=== PATIENT | female | born 1950 | race Caucasian/White ===

== ENCOUNTER → 2023-10-21 14:16 | Outpatient (BNVA) | payer MEDICARE, SELFPAY | PROVIDERS: PCP Nurse Practitioner; Visit Provider Podiatrist Foot & Ankle Surgery | DX: M79.671 Pain in right foot (principal); E11.42 Type 2 diabetes mellitus with diabetic polyneuropathy; L60.3 Nail dystrophy; Q82.8 Other specified congenital malformations of skin; G62.9 Polyneuropathy, unspecified; Z79.4 Long term (current) use of insulin | CPT/HCPCS: 11055; 11721; 73630; 99203 ==

== ENCOUNTER → 2023-12-23 08:57 | Outpatient (BNVA) | payer MEDICARE, SELFPAY | PROVIDERS: PCP Nurse Practitioner; Visit Provider Podiatrist Foot & Ankle Surgery | DX: E11.8 Type 2 diabetes mellitus with unspecified complications (principal); L60.3 Nail dystrophy; G62.9 Polyneuropathy, unspecified; E11.42 Type 2 diabetes mellitus with diabetic polyneuropathy; Q82.8 Other specified congenital malformations of skin; M79.671 Pain in right foot; Z79.4 Long term (current) use of insulin | CPT/HCPCS: 11055; 11721; 73630; 99213 ==

== ENCOUNTER → 2024-02-22 10:58 | Outpatient (BNVA) | payer MEDICARE, MEDICAID, SELFPAY | PROVIDERS: PCP Nurse Practitioner; Visit Provider Podiatrist Foot & Ankle Surgery | DX: M79.672 Pain in left foot (principal); E11.42 Type 2 diabetes mellitus with diabetic polyneuropathy; L60.3 Nail dystrophy; Q82.8 Other specified congenital malformations of skin; G62.9 Polyneuropathy, unspecified; Z79.4 Long term (current) use of insulin | CPT/HCPCS: 11056; 11721; 73630; 99213 ==

== ENCOUNTER 2024-03-21 10:35 | Outpatient (CLI) | payer MEDICARE, MEDICAID, SELFPAY ==
--- NOTE | 2024-03-21 10:40 | MM_ITS ---
WS: [id number] BILATERAL 3D TOMOSYNTHESIS DIGITAL SCREENING MAMMOGRAPHY WITH CAD CLINICAL INFORMATION: SCREENING HISTORY: Screening mammogram. No current complaints. COMPARISON: 2021 TECHNIQUE: Bilateral CC and MLO views. FINDINGS: Scattered fibroglandular densities bilaterally. No suspicious focal mass, asymmetry, calcifications, or architectural distortion. No evidence of malignancy. Incidental punctate calcifications. Biopsy clip LEFT breast. Vascular calcification. MM/MM scr tomosynthesis 80115 IMPRESSION: DENSITY: There are scattered areas of fibroglandular density. BI-RADS: 2 - Benign. FOLLOW UP: 1 Year Follow-up Recommend return to annual screening mammography.
== END 2024-03-21 10:36 | disposition home or self-care (01) ==
PROVIDERS: PCP Student in an Organized Health Care Education/Training Program; Visit Provider Student in an Organized Health Care Education/Training Program
DX: Z12.31 Encounter for screening mammogram for malignant neoplasm of breast (principal); R92.323 Mammographic fibroglandular density, bilateral breasts; R92.1 Mammographic calcification found on diagnostic imaging of breast
CPT/HCPCS: 77063; 77067

== ENCOUNTER → 2024-04-03 09:11 | Outpatient (BNVA) | payer MEDICARE, MEDICAID, SELFPAY | PROVIDERS: PCP Nurse Practitioner; Visit Provider Internal Medicine | DX: E11.9 Type 2 diabetes mellitus without complications (principal); E78.2 Mixed hyperlipidemia | CPT/HCPCS: 99204 ==

== ENCOUNTER → 2024-04-25 11:03 | Outpatient (BNVA) | payer MEDICARE, MEDICAID, SELFPAY | PROVIDERS: PCP Nurse Practitioner; Visit Provider Podiatrist Foot & Ankle Surgery | DX: E11.42 Type 2 diabetes mellitus with diabetic polyneuropathy (principal); L60.3 Nail dystrophy; Q82.8 Other specified congenital malformations of skin; G62.9 Polyneuropathy, unspecified; Z79.4 Long term (current) use of insulin | CPT/HCPCS: 11055; 11721 ==

== ENCOUNTER → 2024-05-11 11:09 | Outpatient (BNVA) | payer MEDICARE, MEDICAID, SELFPAY | PROVIDERS: PCP Nurse Practitioner; Visit Provider Internal Medicine | DX: E11.9 Type 2 diabetes mellitus without complications (principal); E78.2 Mixed hyperlipidemia | CPT/HCPCS: 99214 ==

== ENCOUNTER 2024-06-01 12:11 | Outpatient (CLI) | payer MEDICARE, MEDICAID, SELFPAY ==
--- NOTE | 2024-06-01 13:20 | OP.DCCON ---
Outpatient Dietitian Note Assessment Anthropometrics: Height: [63 inches] Weight History: [Currently 180lbs, lowest was 140lbs prior to of son.] Biochemical: No Data to Display Clinical: Home Medications ?Medication ?Instructions ?Recorded ?Confirmed ?Last Taken ?Type mupirocin 2 % topical ointment 1 applic topical BID 10/21/23 06/01/24 Unknown History rosuvastatin 5 mg tablet 5 mg PO DAILY 10/21/23 06/01/24 Unknown History sucralfate 1 gram tablet 1 g PO BID 10/21/23 06/01/24 Unknown History diabetic shoes w/ 3 inserts #1 ea 11/09/23 06/01/24 Unknown Rx Diabteic Shoes w/3 inserts #1 ea 03/08/24 06/01/24 Unknown Rx blood-glucose meter,continuous #1 ea 04/18/24 06/01/24 Unknown Rx (FreeStyle Anurag 3 [place]) blood-glucose sensor (FreeStyle #2 ea 04/18/24 06/01/24 Unknown Rx Anurag 3 Plus Sensor device) cyanocobalamin (vitamin B-12) 1,000 mcg SUBCUT 05/11/24 06/01/24 Unknown History 1,000 mcg/mL injection solution dulaglutide 0.75 mg/0.5 mL 0.75 mg (0.5 mL) SUBCUT Q7D 1 05/11/24 06/01/24 Unknown Rx subcutaneous pen injector month #2.5 mL (Trulicity) dulaglutide 1.5 mg/0.5 mL 1.5 mg (0.5 mL) SUBCUT Q7D 1 month 05/11/24 06/01/24 Unknown Rx subcutaneous pen injector #2.5 mL (Trulicity) dulaglutide 3 mg/0.5 mL 3 mg (0.5 mL) SUBCUT Q7D 1 month 05/11/24 06/01/24 Unknown Rx subcutaneous pen injector #2.5 mL (Trulicity) dulaglutide 4.5 mg/0.5 mL 4.5 mg (0.5 mL) SUBCUT Q7D 1 month 05/11/24 06/01/24 Unknown Rx subcutaneous pen injector #2.5 mL (Trulicity) insulin glargine 100 unit/mL 74 unit SUBCUT DAILY 05/11/24 06/01/24 Unknown History subcutaneous cartridge pen needle, diabetic 32 gauge x #1,200 ea 05/11/24 06/01/24 Unknown History (Pentips Pen Needle) Allergies Allergy/AdvReac Type Severity Reaction Status Date / Time No Known Allergies Allergy Verified 06/01/24 10:57 Medical History (Updated 04/03/24 @ 13:02 by Carlos Damon MD) Hyperlipemia, mixed Active Problems Problem Status Onset Hyperlipemia, mixed Acute Pain in left foot Acute Pain of right foot Acute Peripheral neuropathy Acute Dietary: Supplements: [Metamucil is taken sometimes to help with constipation.] Dietary Patterns: [Sindy said she eats 3 meals and 2 snacks.] Oral Intake: [] Behaviors with Food: [On occasion she likes sweets. ] Food Allergies: [No known food allergies.] Concerns/Issues: [Sindy attended a class and learned to count carbs, but said it was a long time ago and she has gotten away from that . In theory she knows how to eat, but wants some help getting back to that. Her grandchildren and children are her motivation as her dies last fall just 5 weeks after being diagnosed with cancer. Exercise is difficult because she is having issues with callouses that make walking painful. Her diverticulosis is something that also informs her eating.] Environment: Job: [Currently Sindy is retired.] Exercise: [There isn't much exercise d/t issues with callouses.] Hobbies: [She seems social and visits with friends and family often.] Sleep Patterns: [Sleep can be difficult.] Reason for Referral/Concerns and Goals Reason for Referral: 14108 - E11.9 Concerns and Goals: She wanted a refresher on the diabetic diet. Diagnosis [altered nutrition labs] related to [DM2] as evidenced by [HbA1c >9.]. Intervention Nutrition Education: We discussed foundational principles of the diabetic diet - always have lean protein or healthy fat with carbohydrates. Meal planning handouts were given to her for ideas. Also we talked about what is a serving for carbs and how many to have in meals and snacks. A list of healthy snacks was printed out too. The [employer] handout and general information re: the diabetic diet were discussed, as was water intake and activity/exercise. SMART Goals: 1. Always have protein and/or fat with carbs. 2. Exercise snacks of 5-10 minutes after meals either through walking or chair exercises. We also discussed her getting together with a friend or neighbor to walk once her foot issues resolve. 3. Drink water daily. 4. We talked about making your own smoothies as a way to get the right mix of protein and carbs and it not be too heavy. 5. When you have sweets, work them into a meal that is balanced with protein. Monitoring/Evaluation Progress Tracking: My contact information is in the handouts and take home goal sheet so that she can reach out to me with questions or concerns. Follow-up Recommendations: Contact information for questions or concerns following your appointment: email: [email or web address] or phone: [phone]. [phone]. Coding Level of Care Code Nutrition/Individ/Init 60 min Time Spent (min) 60
== END 2024-06-01 12:12 | disposition home or self-care (01) ==
LOC: DIET 12:12
PROVIDERS: PCP Student in an Organized Health Care Education/Training Program; Visit Provider Internal Medicine
DX: L84 Corns and callosities (principal); L60.3 Nail dystrophy; Q82.8 Other specified congenital malformations of skin; E11.42 Type 2 diabetes mellitus with diabetic polyneuropathy
CPT/HCPCS: 99214

== ENCOUNTER → 2024-06-20 09:26 | Outpatient (BNVA) | payer MEDICARE, MEDICAID, SELFPAY | PROVIDERS: PCP Student in an Organized Health Care Education/Training Program; Visit Provider Internal Medicine | DX: E11.9 Type 2 diabetes mellitus without complications (principal); E78.2 Mixed hyperlipidemia | CPT/HCPCS: 99214 ==

== ENCOUNTER → 2024-06-27 11:04 | Outpatient (BNVA) | payer MEDICARE, MEDICAID, SELFPAY | PROVIDERS: PCP Student in an Organized Health Care Education/Training Program; Visit Provider Podiatrist Foot & Ankle Surgery | DX: E11.42 Type 2 diabetes mellitus with diabetic polyneuropathy (principal); L60.3 Nail dystrophy; L84 Corns and callosities; Q82.8 Other specified congenital malformations of skin; G62.9 Polyneuropathy, unspecified; Z79.4 Long term (current) use of insulin | CPT/HCPCS: 11055; 11721 ==

== ENCOUNTER → 2024-08-28 13:51 | Outpatient (BNVA) | payer MEDICARE, MEDICAID, SELFPAY | PROVIDERS: PCP Student in an Organized Health Care Education/Training Program; Visit Provider Podiatrist Foot & Ankle Surgery | DX: S99.922A Unspecified injury of left foot, initial encounter (principal); L60.3 Nail dystrophy; L84 Corns and callosities; W18.42XA Slipping, tripping and stumbling without falling due to stepping into hole or opening, initial encounter; Q82.8 Other specified congenital malformations of skin; E11.42 Type 2 diabetes mellitus with diabetic polyneuropathy; G62.9 Polyneuropathy, unspecified; M76.72 Peroneal tendinitis, left leg | CPT/HCPCS: 11055; 11721; 73610; 73630; 99213 ==

== ENCOUNTER 2024-08-29 10:27 | Outpatient (CLI) | payer MEDICARE, MEDICAID, SELFPAY | END 2024-08-29 10:28 | disposition home or self-care (01) | LOC: SPT 10:28 | PROVIDERS: PCP Student in an Organized Health Care Education/Training Program; Visit Provider Podiatrist Foot & Ankle Surgery | DX: Z46.89 Encounter for fitting and adjustment of other specified devices (principal); M25.572 Pain in left ankle and joints of left foot | CPT/HCPCS: L4361 ==

== ENCOUNTER 2024-09-13 11:03 | Outpatient (CLI) | payer MEDICARE, MEDICAID, SELFPAY | END 2024-09-13 11:04 | disposition home or self-care (01) | LOC: SPT 11:04 | PROVIDERS: PCP Student in an Organized Health Care Education/Training Program; Visit Provider Podiatrist Foot & Ankle Surgery | DX: Z46.89 Encounter for fitting and adjustment of other specified devices (principal); M76.72 Peroneal tendinitis, left leg; G62.9 Polyneuropathy, unspecified | CPT/HCPCS: L1902 ==

== ENCOUNTER → 2024-09-19 10:04 | Outpatient (BNVA) | payer MEDICARE, MEDICAID, SELFPAY | PROVIDERS: PCP Student in an Organized Health Care Education/Training Program; Visit Provider Internal Medicine | DX: E11.9 Type 2 diabetes mellitus without complications (principal); E78.2 Mixed hyperlipidemia | CPT/HCPCS: 99214 ==

== ENCOUNTER → 2024-09-27 09:24 | Outpatient (BNVA) | payer MEDICARE, MEDICAID, SELFPAY | PROVIDERS: PCP Student in an Organized Health Care Education/Training Program; Visit Provider Podiatrist Foot & Ankle Surgery | DX: M76.72 Peroneal tendinitis, left leg (principal); L60.3 Nail dystrophy; L84 Corns and callosities; Q82.8 Other specified congenital malformations of skin; G62.9 Polyneuropathy, unspecified; E11.69 Type 2 diabetes mellitus with other specified complication; Z79.4 Long term (current) use of insulin | CPT/HCPCS: 99213 ==